=== PATIENT | male | born 1955 | race Caucasian/White ===

== ENCOUNTER 2023-03-28 09:43 | Outpatient (CLI) | payer MEDICARE, BC, SELFPAY | END 2023-03-28 09:44 | disposition home or self-care (01) | PROVIDERS: PCP Family Medicine; Visit Provider Family Medicine | DX: Z00.00 Encounter for general adult medical examination without abnormal findings (principal); Z13.1 Encounter for screening for diabetes mellitus; Z12.5 Encounter for screening for malignant neoplasm of prostate | CPT/HCPCS: 80048; 84153 ==

== ENCOUNTER 2024-08-27 10:42 | Outpatient (CLI) | payer MEDICARE, BC, SELFPAY | END 2024-08-27 10:43 | disposition home or self-care (01) | PROVIDERS: PCP Family Medicine; Visit Provider Emergency Medicine | DX: Z12.5 Encounter for screening for malignant neoplasm of prostate (principal); E78.2 Mixed hyperlipidemia | CPT/HCPCS: 80048; 80061; G0103 ==